=== PATIENT | male | born 1940 | race Caucasian/White ===

== ENCOUNTER 2016-07-15 12:47 | Observation (INO) | payer MEDICARE, BC, OTHER ==
[~2016-07-15 12:47] MED LIST: Albuterol/Ipratropium 3.0-0.5 MG/3 ML Neb Soln ONE
[2016-07-15] MEDS ORDERED: methylPREDNISolone Sodium Succinate 125 MG/2 ML SDV IVPUSH STA (13:03)
--- NOTE | 2016-07-15 13:03 | EDM.PDOC ---
ED HPI GENERAL MEDICAL PROBLEM - General Chief Complaint: Respiratory Problem Stated Complaint: sob Time Seen by Provider: 07/15/16 12:47 Source of Information: Reports: Patient History Limitations: Reports: No Limitations - History of Present Illness INITIAL COMMENTS - FREE TEXT/NARRATIVE: This patient is a 75 year old male that presents to the ER via ambulance. Patient reports that for the past few days he has had increase in chest congestion, cough, shortness of breath. The patient reports that when he woke this morning he felt even more short of breath and it has just worsened as the day progressed. The patient reports he has a history of COPD and does not wear oxygen at home. The ambulance has reported to me the oxygen saturation was 77% on RA. Onset Date: 07/12/16 Duration: Getting Worse Location: Reports: Chest Severity: Moderate Worsens with: Reports: Breathing Associated Symptoms: Reports: Cough, cough w sputum, Shortness of Breath. Denies: Confusion, Chest Pain, Diaphoresis, Fever/Chills, Headaches, Loss of Appetite, Malaise, Nausea/Vomiting, Rash, Seizure, Syncope, Weakness - Related Data Allergies Allergy/AdvReac Type Severity Reaction Status Date / Time Penicillins Allergy Severe Hives Verified 07/15/16 13:58 lorazepam [From Ativan] Allergy Agitation Verified 07/15/16 13:58 Sulfa (Sulfonamide Allergy Itching Verified 07/15/16 13:58 Antibiotics) Home Meds: Home Meds Albuterol Sulfate [Ventolin Hfa] 2 puff IH Q6HR PRN 06/29/13 [History] Albuterol [Proventil Neb Soln] 1 ampule NEB QID PRN 06/29/13 [History] Aspirin [Low Dose Aspirin EC] 81 mg PO DAILY 06/29/13 [History] Cholecalciferol (Vitamin D3) [Vitamin D] 2,000 unit PO DAILY 06/29/13 [History] Citalopram Hydrobromide [Celexa] 20 mg PO DAILY 06/29/13 [History] Clopidogrel [Plavix] 75 mg PO DAILY 06/29/13 [History] Docusate Sodium [Colace] 100 mg PO DAILY PRN 06/29/13 [History] Nitroglycerin [Nitrostat] 0.4 mg SL ASDIRECTED PRN 06/29/13 [History] Omeprazole [Omeprazole] 40 mg PO QAM 06/29/13 [History] Tamsulosin [Tamsulosin 24 Hr] 0.4 mg PO BEDTIME 06/29/13 [History] Tiotropium [Spiriva Handihaler] 1 cap INH DAILY 06/29/13 [History] Rizwan Cit/Mag/D3/Zn/E Commerce Strategist/Jayy/Bor [Citracal-Vit D + Magnesium] 2 tab PO DAILY 02/23 [History] Finasteride 5 mg PO DAILY 07/15/16 [History] Past Medical History HEENT History: Reports: Hard of Hearing, Impaired Vision Cardiovascular History: 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, Stents Neurological History: Reports: Other (See Below) Other Neuro History: very forgetful Endocrine/Metabolic History: Reports: Diabetes, Type II - Past Surgical History GI Surgical History: Reports: Other (See Below) Social & Family History - Tobacco Use Smoking Status *Q: Never Smoker Years of Tobacco use: 25 Used Tobacco, but Quit: Yes Month Tobacco Last Used: 20 years ago Second Hand Smoke Exposure: No - Alcohol Use Days Per Week of Alcohol Use: 0 - Recreational Drug Use Recreational Drug Use: No ED ROS GENERAL - Review of Systems Review Of Systems: See Below Constitutional: Reports: No Symptoms HEENT: Reports: No Symptoms Respiratory: Reports: Shortness of Breath, Wheezing, Pleuritic Chest Pain, Cough , Sputum Cardiovascular: Reports: No Symptoms Endocrine: Reports: No Symptoms GI/Abdominal: Reports: No Symptoms : Reports: No Symptoms Musculoskeletal: Reports: No Symptoms Skin: Reports: No Symptoms Neurological: Reports: No Symptoms Psychiatric: Reports: No Symptoms Hematologic/Lymphatic: Reports: No Symptoms Immunologic: Reports: No Symptoms ED EXAM, GENERAL - Physical Exam Exam: See Below Exam Limited By: No Limitations General Appearance: Alert, WD/WN, No Apparent Distress Eye Exam: Bilateral Eye: Normal Inspection, PERRL Ears: Normal External Exam, Normal Canal, Hearing Grossly Normal, Normal TMs Ear Exam: Bilateral Ear: Auricle Normal, Canal Normal, TM normal Nose: Normal Inspection, Normal Mucosa, No Blood Throat/Mouth: Normal Inspection, Normal Lips, Normal Teeth, Normal Gums, Normal Oropharynx, Normal Voice, No Airway Compromise Head: Atraumatic, Normocephalic Neck: Normal Inspection, Supple, Non-Tender, Full Range of Motion Respiratory/Chest: No Respiratory Distress, Chest Non-Tender, Decreased Breath Sounds (moderately throughout. ), Wheezing (tight. ). No: Stridor, Accessory Muscle Use, Retractions, Splinting Cardiovascular: Normal Peripheral Pulses, Regular Rate, Rhythm, No Edema, No Gallop, No JVD, No Murmur, No Rub Peripheral Pulses: 2+: Radial (L), Radial (R), Posterior Tibial (L), Posterior Tibial (R), Dorsalis Pedis (L), Dorsalis Pedis (R) GI/Abdominal: Soft, Non-Tender, No Organomegaly, No Distention, No Abnormal Bruit, No Mass, Pelvis Stable Back Exam: Normal Inspection, Full Range of Motion Extremities: Normal Inspection, Normal Range of Motion, Non-Tender, No Pedal Edema, Normal Capillary Refill Neurological: Alert, Oriented, No Motor/Sensory Deficits Psychiatric: Normal Affect, Normal Mood Skin Exam: Warm, Dry, Intact, Normal Color, No Rash Lymphatic: No Adenopathy Course - Vital Signs Last Recorded V/S: Last Vital Signs Temp 98.5 F 07/15/16 12:56 Pulse 84 07/15/16 13:39 Resp 24 H 07/15/16 13:39 BP 113/76 07/15/16 13:39 Pulse Ox 96 07/15/16 13:39 - Orders/Labs/Meds Orders: Active Orders 24 hr Category Date Time Status Oxygen Therapy [RC] ASDIRECTED Care 07/15/16 13:33 Active Oxygen Therapy, ED [RC] ASDIRECTED Care 07/15/16 13:43 Active RT Aerosol Therapy [RC] ASDIRECTED Care 07/15/16 13:32 Active RT Aerosol Therapy [RC] ASDIRECTED Care 07/15/16 13:54 Active Chest 2V [CR] Stat Exams 07/15/16 12:57 Taken Labs: Laboratory Tests 07/15/16 07/15/16 07/15/16 Range/Units 12:57 12:57 13:08 WBC 5.7 (5.0-10.0) 10^3/uL RBC 4.62 (4.50-6.00) 10^6/uL Hgb 12.1 L (14.0-18.0) g/dL Hct 38.6 L (40.0-54.0) % MCV 83.5 (82.0-94.0) fL MCH 26.2 L (27.0-32.0) pg MCHC 31.3 L (33.0-38.0) g/dL RDW Coeff of Sid 15.3 H (11.0-15.0) % Plt Count 196 (150-400) 10^3/uL Neut % (Auto) 58.3 (35-85) % Lymph % (Auto) 20.2 (10-55) % [place] % (Auto) 11.9 (0-16) % Eos % (Auto) 8.5 H (0-5) % Baso % (Auto) 1.1 (0-3) % Neut # (Auto) 3.30 (1.80-7.00) 10^3/uL Lymph # (Auto) 1.14 (1.00-4.80) 10^3/uL [place] # (Auto) 0.67 (0.00-0.80) 10^3/uL Eos # (Auto) 0.48 H (0.00-0.45) 10^3/uL Baso # (Auto) 0.06 10^3/uL ABG pH 7.37 (7.35-7.45) ABG pCO2 41 (35-45) mm/Hg0 ABG pO2 76 L (80-100) mm/Hg ABG HCO3 23.7 (22.0-26.0) mm/L ABG O2 Saturation 95 (95-98) % ABG Base Excess -2.0 (-2.0-3.0) O2 Delivery Device Room air Sodium 141 (136-145) mEq/L Potassium 4.3 (3.5-5.0) mEq/L Chloride 104 (98-106) mEq/L Carbon Dioxide 26 (21-32) mmol/L BUN 21 H (7-18) mg/dL Creatinine 1.2 (0.7-1.3) mg/dL Est Cr Clr Drug Dosing 43.68 mL/min Estimated GFR (MDRD) 59 L (>=60) mL/min Glucose 147 H (75-99) mg/dL Calcium 8.8 (8.4-10.1) mg/dL Total Bilirubin 0.6 (0.0-1.0) mg/dL AST 12 L (15-37) U/L ALT 14 (12-78) U/L Alkaline Phosphatase 87 (46-116) U/L Troponin I < 0.017 (0.00-0.06) ng/mL C-Reactive Protein < 0.2 L (0.2-0.8) mg/dL Icr-S-Cmaxvtviikq Pept 208 (0-1000) pg/nL Total Protein 7.2 (6.4-8.2) g/dL Albumin 3.7 (3.4-5.0) g/dL Meds: Medications Discontinued Medications Generic Name Dose Route Start Last Admin Trade Name Vincenzo PRN Reason Stop Dose Admin Albuterol/Ipratropium Confirm 07/15/16 12:47 07/15/16 12:50 Duoneb 3.0-0.5 Mg/3 Ml Administered 07/15/16 12:48 3 ml Dose Administration 3 ml .ROUTE .STK-MED ONE Albuterol/Ipratropium 3 ml 07/15/16 13:54 07/15/16 14:04 Duoneb 3.0-0.5 Mg/3 Ml NEB 07/15/16 13:55 3 ml ONETIME ONE Administration Methylprednisolone Sodium Succinate 125 mg 07/15/16 13:03 07/15/16 13:36 Solu-Medrol IVPUSH 07/15/16 13:04 125 mg NOW STA Administration - Radiology Interpretation Free Text/Narrative:: CXR: NO acute infiltrates, no pulmonary edema. There are emphysema changes. - Re-Assessments/Exams Free Text/Narrative Re-Assessment/Exam: 07/15/16 14:31 After 2nd breathing treatment, the patient reports his breathing has improved, but still feeling short of breath. He is moving more air. The patient has developed in the left posterior lung base with expiration a loud click sound on auscultation. Patient denies pain at the site or any chest pain associated with this loud heard click. Departure - Departure Time of Disposition: 14:33 Disposition: Refer to Observation Condition: fair Clinical Impression: COPD exacerbation - Discharge Information Forms: ED Department Discharge - My Orders Last 24 Hours: My Active Orders 07/15/16 12:57 Chest 2V [CR] Stat 07/15/16 13:32 RT Aerosol Therapy [RC] ASDIRECTED 07/15/16 13:33 Oxygen Therapy [RC] ASDIRECTED 07/15/16 13:43 Oxygen Therapy, ED [RC] ASDIRECTED 07/15/16 13:54 RT Aerosol Therapy [RC] ASDIRECTED - Assessment/Plan Last 24 Hours: My Active Orders 07/15/16 12:57 Chest 2V [CR] Stat 07/15/16 13:32 RT Aerosol Therapy [RC] ASDIRECTED 07/15/16 13:33 Oxygen Therapy [RC] ASDIRECTED 07/15/16 13:43 Oxygen Therapy, ED [RC] ASDIRECTED 07/15/16 13:54 RT Aerosol Therapy [RC] ASDIRECTED Plan: PLEASE SEE RN NOTE FOR PFSH. PLEASE USE ER H&P FOR ADMIT H&P.
[2016-07-15 13:31] LABS: CHLORIDE,CL 104 mEq/L (98-106); SODIUM,NA 141 mEq/L (136-145)
[2016-07-15 13:31] LABS: O2 DELIVERY DEVICE ROOM AIR; O2 SATURATION ARTERIAL 95 % (95-98); PCO2 ARTERIAL 41 mm/Hg0 (35-45); PO2 ARTERIAL 76 mm/Hg (80-100)
[2016-07-15 13:32] LABS: BICARBONATE,ARTERIAL 23.7 mm/L (22.0-26.0)
[2016-07-15] MEDS ORDERED: Albuterol/Ipratropium 3.0-0.5 MG/3 ML Neb Soln NEB ONE ×2 (13:54→18:10)
[2016-07-15] MEDS ORDERED: Docusate Sodium 100 MG Cap PO PRN (14:57)
[2016-07-15] MEDS ORDERED: Ondansetron 4 MG/2 ML SDV IV PRN (14:57)
[2016-07-15] MEDS ORDERED: Morphine 2 MG/ML Syringe IVPUSH PRN (14:57)
[2016-07-15] MEDS ORDERED: Acetaminophen/HYDROcodone 325-5 MG Tab PO PRN (14:57)
[2016-07-15] MEDS ORDERED: Ibuprofen 200 MG Tab PO PRN (14:57)
[2016-07-15] MEDS ORDERED: Acetaminophen 325 MG Tab PO PRN (14:57)
[2016-07-15] MEDS: Albuterol/Ipratropium 3.0-0.5 MG/3 ML Neb Soln NEB PRN (17:54)
[2016-07-15] MEDS ORDERED: Albuterol 8 GM Inhaler **OWN MED INH PRN (18:21)
[2016-07-15] MEDS ORDERED: Nitroglycerin 0.4 MG Tab.SL SL PRN (19:00)
[2016-07-15] MEDS ORDERED: Enoxaparin 40 MG/0.4 ML Syringe SUBCUT SCH (20:00)
[2016-07-15] MEDS ORDERED: Tamsulosin 0.4 MG Cap.ER **OWN MED PO SCH (20:00)
[2016-07-15] MEDS: Albuterol/Ipratropium 3.0-0.5 MG/3 ML Neb Soln NEB SCH (20:09)
[2016-07-15] MEDS: methylPREDNISolone Sodium Succinate 125 MG/2 ML SDV IVPUSH SCH (22:58)
[2016-07-16] MEDS: Albuterol/Ipratropium 3.0-0.5 MG/3 ML Neb Soln NEB SCH ×3 (02:03→13:50)
[2016-07-16] MEDS ORDERED: [UNRECOGNIZED DRUG - OTHER] PO SCH (08:00)
[2016-07-16] MEDS ORDERED: Tiotropium Inhaler 18 MCG Inhalation Powder Cap Kit of 5 INH SCH (08:00)
[2016-07-16] MEDS ORDERED: OMEPRAZOLE 20 MG PO SCH (08:00)
[2016-07-16] MEDS ORDERED: Non-Formulary Medication 1 Each (Cholecalciferol (Vitamin D3) [Vitamin D3] 2,000 UNIT) PO SCH (08:00)
[2016-07-16] MEDS ORDERED: Finasteride 5 MG Tab **OWN MED PO SCH (08:00)
[2016-07-16] MEDS ORDERED: Aspirin 81 MG Tab.EC PO SCH (08:00)
[2016-07-16] MEDS ORDERED: Clopidogrel 75 MG Tab **OWN MED PO SCH (08:00)
[2016-07-16] MEDS ORDERED: CITALOPRAM HYDROBROMIDE 20 MG PO SCH (08:00)
[2016-07-16 08:14] LABS: CHLORIDE,CL 102 mEq/L (98-106); SODIUM,NA 140 mEq/L (136-145)
[2016-07-16] MEDS ORDERED: Sodium Chloride 0.9% 500 ML IV SCH (08:45)
[2016-07-16] MEDS: Albuterol/Ipratropium 3.0-0.5 MG/3 ML Neb Soln NEB PRN (08:52)
[2016-07-16] MEDS ORDERED: Iopamidol 755 Mg/ML 100 ML Bottle IVPUSH ONE (09:03)
[2016-07-16] MEDS: methylPREDNISolone Sodium Succinate 125 MG/2 ML SDV IVPUSH SCH (10:27)
[2016-07-16 11:44] VITALS: BP 123/79
[2016-07-16] MEDS ORDERED: Albuterol/Ipratropium 3.0-0.5 MG/3 ML Neb Soln NEB ONE ×2 (13:52)
--- NOTE | 2016-07-16 14:26 | PCM.DCSUM1 ---
Discharge Summary - Hospital Course HPI Initial Comments: This patient is a 75 year old male admitted last night from the ER for COPD exacerbation by me. After admission the patient improved and through the night had improved with breathing treatments. The patent this morning reports he feels more short of breath. He is now have retractions with muscle use. The patient is still able to converse in a full and complete sentence. The patient is 95% on 2L NC. The patient lung sounds are still very tight with wheezing and severely decreased throughout. I have ordered a CTA of the chest to look for PEs , masses, or infiltrates not seen on CXR. I have discussed this report with the radiologist who has informed me the patient has severe emphysema, several small nodules in both lungs, and a large 1.4cm mass in the right middle lobe and may extend up to the right upper lobe. The radiologist recommends this patent have a PET Scan or Biopsy performed. I have discussed the results with the patient. He and his would like to be transferred to [facility]. The patient is a full code. At this time no intubation is needed. I have ordered two more breathing treatments and will transfer the patient. I then spoke to Dr. Cali, hospitalist who has accepted the patient. All images were pushed to their facility. - Discharge Data Discharge Date: 07/16/16 Discharge Disposition: DC/Tfer to Acute Hospital 02 Condition: Good - Discharge Plan Home Medications: Home Meds Albuterol Sulfate [Ventolin Hfa] 2 puff IH Q6HR PRN 06/29/13 [History] Albuterol [Proventil Neb Soln] 1 ampule NEB QID PRN 06/29/13 [History] Aspirin [Low Dose Aspirin EC] 81 mg PO DAILY 06/29/13 [History] Cholecalciferol (Vitamin D3) [Vitamin D] 2,000 unit PO DAILY 06/29/13 [History] Citalopram Hydrobromide [Celexa] 20 mg PO DAILY 06/29/13 [History] Clopidogrel [Plavix] 75 mg PO DAILY 06/29/13 [History] Docusate Sodium [Colace] 100 mg PO DAILY PRN 06/29/13 [History] Nitroglycerin [Nitrostat] 0.4 mg SL ASDIRECTED PRN 06/29/13 [History] Omeprazole [Omeprazole] 40 mg PO QAM 06/29/13 [History] Tamsulosin [Tamsulosin 24 Hr] 0.4 mg PO BEDTIME 06/29/13 [History] Tiotropium [Spiriva Handihaler] 1 cap INH DAILY 06/29/13 [History] Rizwan Cit/Mag/D3/Zn/Enterprise Application Administrator/Jayy/Bor [Citracal-Vit D + Magnesium] 2 tab PO DAILY 02/23 [History] Finasteride 5 mg PO DAILY 07/15/16 [History] Forms: ED Department Discharge Referrals: PCP,None [Primary Care Provider] - - Discharge Summary/Plan Comment Discharge Summary/Plan Comment: The risks verse benefits were discussed with the patient. The risks of the transfer is MVC, , worsening of breathing, cardiac arrest, intubation. The benefits of the transfer are specialist pulmonary, oncologist, pet scan ability , biopsy ability. The benefits of staying in [place] are close to home. The risks of staying in [place] are no improvement, worsening of condition, , cardiac arrest, intubation. - General Info Functional Status: Reports: pain controlled, new symptoms (worsening of breathing) - Review of Systems General: Reports: Weakness (general) HEENT: Reports: sinus congestion Pulmonary: Reports: shortness of breath, pleuritic chest pain, cough, sputum, wheezing Cardiovascular: Reports: No Symptoms Gastrointestinal: Reports: No symptoms Genitourinary: Reports: no symptoms Musculoskeletal: Reports: no symptoms Skin: Reports: no symptoms Neurological: Reports: No Symptoms Psychiatric: Reports: no symptoms - Patient Data Vitals - Most Recent: Last Vital Signs Temp 97.4 F 07/16/16 11:43 Pulse 84 07/16/16 11:43 Resp 18 07/16/16 11:43 BP 123/79 07/16/16 11:43 Pulse Ox 97 07/16/16 11:43 Weight - Most Recent: 130 lb I&O - Last 24 hours: Intake & Output 07/15/16 07/16/16 07/16/16 22:59 06:59 14:59 Intake Total 200 280 Balance 200 280 Lab Results - Last 24 hrs: Laboratory Results - last 24 hr 07/16/16 07/16/16 07/16/16 Range/Units 05:00 05:00 08:53 WBC 7.0 (5.0-10.0) 10^3/uL RBC 4.49 L (4.50-6.00) 10^6/uL Hgb 11.8 L (14.0-18.0) g/dL Hct 37.6 L (40.0-54.0) % MCV 83.7 (82.0-94.0) fL MCH 26.3 L (27.0-32.0) pg MCHC 31.4 L (33.0-38.0) g/dL RDW Coeff of Sid 15.1 H (11.0-15.0) % Plt Count 220 (150-400) 10^3/uL Neut % (Auto) 86.8 H (35-85) % Lymph % (Auto) 9.2 L (10-55) % [place] % (Auto) 3.9 (0-16) % Eos % (Auto) 0 (0-5) % Baso % (Auto) 0.1 (0-3) % Neut # (Auto) 6.07 (1.80-7.00) 10^3/uL Lymph # (Auto) 0.64 L (1.00-4.80) 10^3/uL [place] # (Auto) 0.27 (0.00-0.80) 10^3/uL Eos # (Auto) 0.00 (0.00-0.45) 10^3/uL Baso # (Auto) 0.01 10^3/uL Sodium 140 (136-145) mEq/L Potassium 4.2 (3.5-5.0) mEq/L Chloride 102 (98-106) mEq/L Carbon Dioxide 24 (21-32) mmol/L BUN 20 H (7-18) mg/dL Creatinine 1.2 (0.7-1.3) mg/dL Est Cr Clr Drug Dosing 43.68 mL/min Estimated GFR (MDRD) 59 L (>=60) mL/min Glucose 251 H D (75-99) mg/dL Calcium 9.2 (8.4-10.1) mg/dL C-Reactive Protein < 0.2 L (0.2-0.8) mg/dL Urine Color Yellow (YELLOW) Urine Appearance Clear (CLEAR) Urine pH 5.0 (4.5-8.0) Ur Specific [place] 1.020 (1.003-1.020) Urine Protein Negative (NEGATIVE) mg/dL Urine Glucose (UA) 500 H (NEGATIVE) mg/dL Urine Ketones Negative (NEGATIVE) mg/dL Urine Occult Blood Negative (NEGATIVE) Urine Nitrite Negative (NEGATIVE) Urine Bilirubin Negative (NEGATIVE) Urine Urobilinogen 0.2 (0.2-1.0) EU/dL Ur Leukocyte Esterase Negative (NEGATIVE) Urine RBC Not seen (0-5) /HPF Urine WBC Not seen (0-5) /HPF Med Orders - Current: Current Medications Acetaminophen (Tylenol) 650 mg PO Q4H PRN PRN Reason: Pain (Mild 1-3)/fever Last Admin: 07/15/16 23:02 Dose: 650 mg Hydrocodone Bitart/Acetaminophen ([place] 325-5 Mg) 1 tab PO Q4H PRN PRN Reason: Pain (moderate 4-6) Albuterol (Ventolin Hfa) 0 gm INH Q6H PRN PRN Reason: Shortness of Breath Albuterol/Ipratropium (Duoneb 3.0-0.5 Mg/3 Ml) 3 ml NEB Q4H PRN PRN Reason: Shortness Of Breath/wheezing Last Admin: 07/16/16 08:52 Dose: 3 ml Albuterol/Ipratropium (Duoneb 3.0-0.5 Mg/3 Ml) 3 ml NEB Q6H [facility] Last Admin: 07/16/16 13:50 Dose: 3 ml Aspirin (Halfprin) 81 mg PO DAILY [facility] Last Admin: 07/16/16 07:20 Dose: 81 mg Clopidogrel Bisulfate (Plavix) 75 mg PO DAILY [facility] Last Admin: 07/16/16 07:22 Dose: 75 mg Docusate Sodium (Colace) 100 mg PO BID PRN PRN Reason: Constipation Enoxaparin Sodium (Lovenox) 40 mg SUBCUT Q24H [facility] Last Admin: 07/15/16 19:21 Dose: 40 mg Finasteride (Proscar) 5 mg PO DAILY [facility] Last Admin: 07/16/16 07:22 Dose: 5 mg Ibuprofen (Motrin) 600 mg PO Q6H PRN PRN Reason: Pain (mild 1-3) Methylprednisolone Sodium Succinate (Solu-Medrol) 62.5 mg IVPUSH Q12H [facility] Last Admin: 07/16/16 10:27 Dose: 62.5 mg Morphine Sulfate (Morphine) 2 mg IVPUSH Q2H PRN PRN Reason: Pain (severe 7-10) Nitroglycerin (Nitrostat) 0.4 mg SL ASDIRECTED PRN PRN Reason: Chest Pain Citalopram Hydrobromide [Celexa ] 20 Mg Tab Own Med 0 mg PO DAILY [facility] Last Admin: 07/16/16 07:20 Dose: 20 mg Omeprazole [Prilosec ] 20 Mg Cap Own Med 0 mg PO QAM [facility] Last Admin: 07/16/16 07:22 Dose: 40 mg Ondansetron HCl (Zofran) 4 mg IV Q6H PRN PRN Reason: Nausea/Vomiting Tamsulosin HCl (Flomax) 0.4 mg PO BEDTIME [facility] Last Admin: 07/15/16 19:21 Dose: 0.4 mg Tiotropium [place] (Spiriva Handihaler) 18 mcg INH DAILY [facility] Last Admin: 07/16/16 08:52 Dose: Not Given Discontinued Medications Albuterol/Ipratropium (Duoneb 3.0-0.5 Mg/3 Ml) Confirm Administered Dose 3 ml .ROUTE .STK-MED ONE Stop: 07/15/16 12:48 Last Admin: 07/15/16 12:50 Dose: 3 ml Albuterol/Ipratropium (Duoneb 3.0-0.5 Mg/3 Ml) 3 ml NEB ONETIME ONE Stop: 07/15/16 13:55 Last Admin: 07/15/16 14:04 Dose: 3 ml Albuterol/Ipratropium (Duoneb 3.0-0.5 Mg/3 Ml) 3 ml NEB ONETIME ONE Stop: 07/15/16 18:11 Last Admin: 07/15/16 18:16 Dose: 3 ml Albuterol/Ipratropium (Duoneb 3.0-0.5 Mg/3 Ml) 3 ml NEB ONETIME ONE Stop: 07/16/16 13:53 Last Admin: 07/16/16 13:59 Dose: 3 ml Albuterol/Ipratropium (Duoneb 3.0-0.5 Mg/3 Ml) 3 ml NEB ONETIME ONE Stop: 07/16/16 13:53 Last Admin: 07/16/16 13:59 Dose: 3 ml Sodium Chloride (Normal Saline) 500 mls @ 250 mls/hr IV .BOLUS RAJINDER Iopamidol (Isovue-370 (76%)) 100 ml IVPUSH ONETIME ONE Stop: 07/16/16 09:04 Last Admin: 07/16/16 09:22 Dose: 100 ml Methylprednisolone Sodium Succinate (Solu-Medrol) 125 mg IVPUSH NOW STA Stop: 07/15/16 13:04 Last Admin: 07/15/16 13:36 Dose: 125 mg Non-Formulary Medication (Rizwan Cit/Mag/D3/Zn/Enterprise Application Administrator/Jayy/Bor [Citracal-Vit D + Magnesium]) 2 tab PO DAILY RAJINDER Non-Formulary Medication (Cholecalciferol (Vitamin D3) [Vitamin D3]) 2,000 unit PO DAILY RAJINDER - Exam Quality Assessment: Reports: supplemental oxygen General: Reports: alert, oriented, cooperative, mild distress Neck: Reports: supple Lungs: Reports: Decreased breath sounds (severe), Wheezing Cardiovascular: Reports: Regular Rate, Regular Rhythm Abdomen: Reports: soft, no tenderness, no distension Back Exam: Reports: Normal Inspection, Full Range of Motion Extremities: Reports: no edema, normal pulses Skin: Reports: warm, dry, intact Neurological: Reports: no new focal deficit Psy/Mental Status: Reports: alert, normal affect, normal mood *Q Meaningful Use (DIS) - VTE *Q VTE Criteria *Q: VTE Anticoagulation Contraindications: Alternative tx request pt - Stroke *Q Stroke Criteria *Q: - AMI *Q AMI Criteria *Q:
== END 2016-07-16 14:35 ==
LOC: CC.ED 12:47 → CC.MS 14:42 → UNDOADMOB 14:42 → CC.MS 14:57
PROVIDERS: ADMIT Nurse Practitioner; ATTEND Family Medicine
DX: J44.1 Chronic obstructive pulmonary disease with (acute) exacerbation (principal); E11.9 Type 2 diabetes mellitus without complications; Z79.82 Long term (current) use of aspirin; Z79.899 Other long term (current) drug therapy; Z95.0 Presence of cardiac pacemaker; Z95.5 Presence of coronary angioplasty implant and graft
CPT/HCPCS: 36415; 36600; 71020; 71275; 80048; 80053; 81001; 82803; 83880; 84484; 85025; 86140; 93005; 94640; 94760; 96372; 96374; 96376; 99217; 99220; 99285; A9270; G0378; J1650; J2930; Q9967; 93010